=== PATIENT | male | born 1975 | race Caucasian/White ===

== ENCOUNTER → 2016-12-31 | Outpatient (CLI) | payer BC ==
[~2016-12-31] MED LIST: ALPR-411 PO; BUPR-79 PO; EFF50 PO; OXYC1TAB3 PO; PRED-301 PO
--- NOTE | 2016-12-31 16:25 | DIAGNOSTIC IMAGING REPORT ---
CERVICAL SPINE 2 OR 3 VIEWS CLINICAL HISTORY: Brachial plexus neuralgia COMPARISON STUDY: No previous studies for comparison. FINDINGS: There is a slight reversal the normal cervical lordosis. There are mild degenerative changes most pronounced the C6-7 level. There is a minimal spinal curvature. No destructive lesions are visualized. IMPRESSION: 1. Minor reversal of the normal cervical lordosis. Degenerative changes at the C6-7 level. Electronically signed by: Tony Montalvo M.D. 12/31/2016 4:24 PM Dictated Date/Time: 12/31/2016 4:23 PM
== END | disposition home or self-care (01) ==
LOC: C.RAD1850 15:47
PROVIDERS: ATTEND Internal Medicine
DX: M54.12 Radiculopathy, cervical region (principal)

== ENCOUNTER 2017-01-06 10:21 | Emergency (ER) | payer BC ==
[~2017-01-06] VITALS: Ht 182.9 cm; Wt 102.4 kg
[~2017-01-06 10:21] MED LIST changes: -BUPR-79 PO; -OXYC1TAB3 PO; -PRED-301 PO
[2017-01-06 10:31] VITALS: TEMP 37.2; Ht 182.9 cm; Wt 102.4 kg
[2017-01-06] MEDS ORDERED: BUPR-79 PO (10:44)
[2017-01-06] MEDS ORDERED: PRED-301 PO (10:44)
[2017-01-06] MEDS ORDERED: OXYC1TAB3 PO (11:27)
--- NOTE | 2017-01-06 11:35 | EMERGENCY ROOM VISIT NOTE ---
History First contact with patient: 10:59 Chief Complaint: ARM PAIN Stated Complaint: LEFT ARM PAIN History of Present Illness The patient is a 41 year old male who presents to the Emergency Room with complaints of persistent left upper extremity pain. The patient reports that he was seen by his family doctor last . He had a cervical spine x-ray performed that was normal. He was started on prednisone, and given a physical therapy referral. The patient reports that he has been applying heat to his arm. He reports that his neck and shoulder discomfort has improved, but now has pain mostly in the elbow and forearm region. He reports occasional tingling and numbness of the hand and fingers. These incisions are not isolated to certain fingers. 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 The patient is right-hand- dominant. The patient denies any chest pain or shortness of breath. The patient contacted his family doctor, who referred him to the emergency department for further evaluation. The patient was not provided any prescription analgesics, and currently rates his pain a 6 out of 10. Review of Systems 10 system review was performed and was negative except for pertinent positives and negatives as indicated in history of present illness Social History Smoking Status: Never Smoker Alcohol Use: none Current/Historical Medications Scheduled Bupropion (Wellbutrin Sr), 150 MG PO BID Prednisone (Prednisone), 0 PO UD Scheduled PRN Oxycodone Ir (Roxicodone Ir), 1-2 TAB PO Q4H PRN for Pain Allergies Coded Allergies: No Known Allergies (Unverified , 01/06/17) Physical Exam Vital Signs Date Time Temp Pulse Resp B/P Pulse Ox O2 Delivery O2 Flow Rate FiO2 01/06/17 10:31 37.2 98 17 128/83 97 Room Air Physical Exam CONSTITUTIONAL: Healthy and well nourished. Alert and oriented X 3 with positive affect. Patient appears in mild to moderate discomfort. HEENT: Normocephalic, atraumatic. Pupils equal, round and reactive. NECK: Full active range of motion without discomfort. Negative lateral gaze test. No focal tenderness to palpation through the paraspinous muscles or central cervical spine. RESPIRATORY: Clear to auscultation bilaterally with no wheezing, crackles, rhonchi or stridor. Deep breathing does not cause any discomfort. CARDIOVASCULAR: Regular rate and rhythm with no murmurs, rubs or gallops. MUSCULOSKELETAL: Examination shows no focal tenderness to palpation about the shoulder. He has significant discomfort to the cubital tunnel with positive compression test and positive Tinel. He has no significant worsening pain with pronation or supination of the forearm. He has no focal tenderness to the wrist. Distal pulses are intact. 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 INTEGUMENTARY: No rash or other significant dermatologic conditions noted. NEUROLOGIC: Left hand and fingers are sensory intact. Median, radial and ulnar motor and sensory are intact. Medical Decision & Procedures ED Course Patient history and physical exam were performed. Nurse's notes were reviewed. Vital signs were reviewed and were normal. The patient's clinical exam today are most consistent with an ulnar neuritis. However, the patient reports that he did also have discomfort from the neck and through the shoulder as well. The patient was advised that this is likely a neuropathy, questionable etiology as cervical, brachial plexus or ulnar neuritis. He was encouraged to continue with his physical therapy referral. Instead of applying heat, I did suggest that he apply an ice pack. He was encouraged to take ibuprofen and Tylenol in alternating fashion for baseline pain relief. She was provided a prescription for OxyIR 5 mg as needed for breakthrough pain. No drinking or driving while taking OxyIR. He was instructed to follow-up with his PCP for further management and referral to orthopedics as needed. The patient voiced understanding of all discharge instructions, was happy with plan of care, and rated his pain a 5 out of 10 at the time of discharge. Medical Decision See previous section Impression Primary Impression: Neuropathy of left upper extremity Departure Information Dispostion Home / Self-Care Prescriptions Oxycodone Ir (Roxicodone Ir) 5 Mg Tab 1-2 TAB PO Q4H Y for Pain, #15 TAB For Initial Treatment Prov: Ronak Paula PA 01/06/17 Forms HOME CARE DOCUMENTATION FORM, IMPORTANT VISIT INFORMATION Patient Instructions [employer] Additional Instructions Intermittently apply ice to the neck, shoulder and elbow. Avoid sitting your elbow on your computer desk or chair arm. Try to avoid sleeping with your elbow bent. Ibuprofen 800 mg and/or Tylenol 1000 mg every 8 hours. You may also alternate these medications for more effective pain relief: Ibuprofen --4 HRS--> Tylenol --4 HRS--> ibuprofen --4 HRS--> Tylenol .... OxyIR if needed for worse pain. Do not drink or drive while taking OxyIR. Continue with the prednisone as prescribed. Continue with physical therapy evaluation. Follow-up with your family doctor as needed for any persistent symptoms.
[2017-01-06 12:10] VITALS: BP 123/89; PULSE 93; O2SAT 97
== END 2017-01-06 12:11 | disposition home or self-care (01) ==
LOC: C.EDB 10:22 → C.EDC 12:11
DX: G62.9 Polyneuropathy, unspecified (principal); Z79.899 Other long term (current) drug therapy